=== PATIENT | male | born 1965 | race Caucasian/White ===

== ENCOUNTER 2017-10-07 12:41 | Day surgery (SDC) | payer OTHER ==
[~2017-10-07 12:41] MED LIST: Buffered Lidocaine 0.9% SYRIN* 5 ML/SYR SYRINGE INTRADERM ONE
[2017-10-07] MEDS ORDERED: Buffered Lidocaine 0.9% SYRIN* 5 ML/SYR SYRINGE ONE (12:58)
[2017-10-07] MEDS ORDERED: fentaNYL* 50 MCG/ML 2 ML VIAL (100 MCG VIAL) ONE (13:37)
[2017-10-07] MEDS ORDERED: Midazolam* 1 MG/ML 2 ML VIAL (2 MG) ONE (13:41)
[2017-10-07] MEDS ORDERED: Propofol* 10 MG/ML 20 ML BTL IV PUSH ONE (13:42)
[2017-10-07] MEDS ORDERED: Naloxone* 0.4 MG/ML 1 ML VIAL IV PRN (13:57)
[2017-10-07 14:39] VITALS: BP 116/63
--- NOTE | 2017-10-08 11:37 | PRO ---
CC: Liban Joiner MD GASTROENTEROLOGY PROCEDURE NOTE: DATE OF PROCEDURE: 10/07/17 REFERRING PHYSICIAN: Liban oJiner MD PROCEDURE: EGD with biopsies. PREOPERATIVE DIAGNOSES: Personal history of Mehta's esophagus in this 52-year- old male who has on going acid reflux symptoms. He is not on any medication in terms of antireflux medication. His most recent upper endoscopy was 2008. POSTOPERATIVE DIAGNOSES: 1. Evidence of Mehta's mucosa from 38 to 40 cm from the incisors. Four quadrant biopsies obtaine d at 38 and 40 cm. There was evidence of erosive esophagitis of the distal esophagus. 2. Diffuse gastritis without erosion or ulceration. Biopsies obtained with antrum for CLOtest, rule out H. pylori. 3. Normal duodenum. PROCEDURE MEDICATIONS: Per Anesthesia. INSTRUMENT: GF-190 Olympus high-definition gastroscope. DESCRIPTION OF PROCEDURE: Informed consent was obtained prior to performing this procedure. The ins trument was introduced into the mouth and passed through cervical esophagus under direct visualizatio n. The instrument was then advanced down the esophagus. In the distal esophagus, there was evidence of Mehta's mucosa from 38 to 40 cm from the incisors. Four quadrant biopsies were obtained at 38 and 40 cm. There was also evidence of erosive gastritis of the distal esophagus. The scope was then passed into the gastric cardia, fundus, body and antrum. There was evidence of mild diffuse gastrit is without erosion or ulceration. Biopsies were obtained for CLOtest for H. pylori testing. The sco pe was then passed through the pylorus and duodenal bulb and descending duodenum, both of which were normal. The instrument was withdrawn from the patient. The patient tolerated the procedure well and there were no complications. RECOMMENDATIONS: I will begin the patient on omeprazole 40 mg daily. I will notify him of pathology results in 1 week. He has been advised to undergo followup endoscopy in 3 years. [id number]/[facility] #: [id number]
== END 2017-10-07 14:59 | disposition home or self-care (01) ==
LOC: OR 12:41
PROVIDERS: ATTEND Internal Medicine
DX: K22.70 Barrett's esophagus without dysplasia (principal); K44.9 Diaphragmatic hernia without obstruction or gangrene; R10.10 Upper abdominal pain, unspecified; R13.10 Dysphagia, unspecified; F17.290 Nicotine dependence, other tobacco product, uncomplicated; K29.60 Other gastritis without bleeding; K21.0 Gastro-esophageal reflux disease with esophagitis; F41.9 Anxiety disorder, unspecified
CPT/HCPCS: 87077; 88305; J2250; J2704; J3010

== ENCOUNTER 2018-02-19 00:56 | Emergency (ER) | payer OTHER ==
[2018-02-19] MEDS ORDERED: Cephalexin CAP* 500 MG PO ONE (01:14)
[2018-02-19] MEDS ORDERED: Ibuprofen TAB* 400 MG PO ONE (01:15)
[2018-02-19] MEDS ORDERED: Tetan/Diph/Pertus SYR(Tdap)* 0.5 ML SYR(BOOSTRIX) use SYR IM ONE (01:15)
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
[2018-02-19 03:10] VITALS: BP 115/63
== END 2018-02-19 03:12 | disposition home or self-care (01) ==
LOC: ED 00:56
DX: S71.101A Unspecified open wound, right thigh, initial encounter (principal); W33.02XA Accidental discharge of hunting rifle, initial encounter; Y93.89 Activity, other specified; Y92.008 Other place in unspecified non-institutional (private) residence as the place of occurrence of the external cause; Z23 Encounter for immunization; J45.909 Unspecified asthma, uncomplicated; F17.290 Nicotine dependence, other tobacco product, uncomplicated
CPT/HCPCS: 71046; 90471; 90715; 99283; A9270-GY

== ENCOUNTER 2018-10-21 13:14 | Emergency (ER) | payer OTHER ==
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
--- NOTE | 2018-10-21 14:39 | ED ---
Shortness of Breath - HPI Summary HPI Summary: A 53 y/o male presents to [facility] with a chief complaint of SOB for a few weeks. He states that he has also had chest pain. He rates his pain as a 2/10 in severity. He says that his chest pain is right sided. He says that his chest pain started out as a sharp pain and is now a more dull pain. He denies abdominal pain. He reports that he was at Dr. Briones office where he had x-rays done. He said that the x-ray showed a big black spot on the right side and a smaller spot on the left side. He claims that Dr. Joiner wanted him to have a CT here, but the patient reports that his insurance wouldnt cover it. He claims that he tried to come in last week for the CT but got caught up helping his mother. He reports being a smoker. - History of Current Complaint Chief Complaint: EDShortnessOfBreath Time Seen by Provider: 10/21/18 14:31 Hx Obtained From: Patient Onset/Duration: Gradual Onset, Lasting Weeks, Still Present Timing: Constant Current Severity: Mild Dyspnea At: Rest Aggrevating Factors: Nothing Alleviating Factors: Nothing Associated Signs & Symptoms: Negative - fever, abdominal pain - Allergy/Home Medications Allergies/Adverse Reactions: Allergies Allergy/AdvReac Type Severity Reaction Status Date / Time gabapentin Allergy Agitation Verified 10/21/18 13:17 Home Medications: Home Medications Aspirin EC TAB* [Ecotrin EC Low Dose 81 MG*] 81 mg PO DAILY 10/21/18 [History Confirmed 10/21/18] Cyclobenzaprine TAB* [Flexeril 10 MG TAB*] 10 mg PO DAILY 10/21/18 [History Confirmed 10/21/18] Escitalopram * [Lexapro 20 mg (NF)] 20 mg PO DAILY 10/21/18 [History Confirmed 10/21/18] Fluticasone/Salmeterol [Fluticasone-Salmeterol 113-14] 1 puff INH BID 10/21/18 [ History Confirmed 10/21/18] Ibuprofen TAB* [Motrin TAB* 600 MG] 600 mg PO Q8H PRN 10/21/18 [History Confirmed 10/21/18] Omeprazole (Nf) [Prilosec (NF)] 40 mg PO DAILY 10/21/18 [History Confirmed 10/21] PMH/Surg Hx/FS Hx/Imm Hx Endocrine/Hematology History: Reports: Hx Anemia Denies: Hx Diabetes, Hx Thyroid Disease Cardiovascular History: Denies: Hx Hypertension, Hx Pacemaker/ICD, Other Cardiovascular Problems/ Disorders Respiratory History: Reports: Hx Asthma - on medication Denies: Hx Chronic Obstructive Pulmonary Disease (COPD), Other Respiratory Problems/Disorders GI History: Reports: Hx Gastroesophageal Reflux Disease, Other GI Disorders - pancreatitis, diverticulitis Denies: Hx Ulcer History: Denies: Other Problems/Disorders Musculoskeletal History: Reports: Hx Arthritis - "All over", knees, arms, neck, back Denies: Other Musculoskeletal History Sensory History: Denies: Hx Contacts or Glasses, 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 Opthamlomology History: Denies: Hx Contacts or Glasses Neurological History: Denies: Other Neuro Impairments/Disorders Psychiatric History: Reports: Hx Anxiety Denies: Hx Panic Disorder - Surgical History Surgery Procedure, Year, and Place: L knee ACL repair 1991, R knee ARTHROSCOPY, DEVIATED SEPTUM, Broken collarbone Hx Anesthesia Reactions: No Infectious Disease History: No Infectious Disease History: Reports: Hx Shingles - 2004 Denies: Hx Hepatitis, Hx Human Immunodeficiency Virus (HIV), Traveled Outside the [place] in Last 30 Days - Family History Known Family History: Negative: Diabetes - Social History Alcohol Use: None Substance Use Type: Reports: Marijuana Substance Use Comment - Amount & Last Used: 1-2 bowls per day Hx Tobacco Use: Yes Smoking Status (MU): Current Every Day Smoker Type: Cigars Amount Used/How Often: 10 cigars a day Have You Smoked in the Last Year: Yes Review of Systems Negative: Fever Positive: Chest Pain Positive: Shortness Of Breath Negative: Abdominal Pain All Other Systems Reviewed And Are Negative: Yes Physical Exam - Summary Physical Exam Summary: Appearance: The patient is well-nourished in no acute distress and in no acute pain. Skin: The skin is warm and dry and skin color reflects adequate perfusion. HEENT: The head is normocephalic and atraumatic. The pupils are equal and reactive. The conjunctivae are clear and without drainage. Nares are patent and without drainage. Mouth reveals moist mucous membranes and the throat is without erythema and exudate. The external ears are intact. The ear canals are patent and without drainage. The tympanic membranes are intact. Neck: The neck is supple with full range of motion and non-tender. There are no carotid bruits. There is no neck vein distension. Respiratory: Chest is non-tender. Lungs are clear to auscultation and breath sounds are symmetrical and equal. Cardiovascular: Heart is regular rate and rhythm. There is no murmur or rub auscultated. There is no peripheral edema and pulses are symmetrical and equal. Abdomen: The abdomen is soft and non-tender. There are normal bowel sounds heard in all four quadrants and there is no organomegaly palpated. Musculoskeletal: There is no back tenderness noted. Extremities are non-tender with full range of motion. There is good capillary refill. There is no peripheral edema or calf tenderness elicited. Neurological: Patient is alert and oriented to person, place and time. The patient has symmetrical motor strength in all four extremities. Cranial nerves are grossly intact. Deep tendon reflexes are symmetrical and equal in all four extremities. Psychiatric: The patient has an appropriate affect and does not exhibit any anxiety or depression. Triage Information Reviewed: Yes Vital Signs On Initial Exam: Initial Vitals Temp Pulse Resp BP Pulse Ox 97.1 F 98 18 153/90 98 10/21/18 13:17 10/21/18 13:17 10/21/18 13:17 10/21/18 13:17 10/21/18 13:17 Vital Signs Reviewed: Yes Diagnostics - Vital Signs Vital Signs Temp Pulse Resp BP Pulse Ox 10/21/18 13:17 97.1 F 98 18 153/90 98 - Laboratory Result Diagrams: 10/21/18 15:34 10/21/18 15:34 Lab Statement: Any lab studies that have been ordered have been reviewed, and results considered in the medical decision making process. - CT chest CT Interpretation Completed By: Radiologist Summary of CT Findings: Stigmata of emphysema and mild interstitial fibrosis most prominent at the upper lung. zones. Mild patchy groundglass opacity bilaterally with relative sparing of the lung bases. Small loculated RIGHT pleural effusion at the lateral mid to basilar RIGHT hemithorax. with the pleural fluid collection measuring up to 13 cm AP by 2.8 cm transverse by 13.6 cm. cephalocaudal. Mildly enlarged RIGHT infrahilar lymph node. Consider atypical infection/interstitial lung disease possibly inhalational given upper. lung zone predominance. Consider bronchoscopy and diagnostic RIGHT thoracentesis for. microbiology and pathologic assessment. ED physician has reviewed this imaging report. - EKG 13:28 Cardiac Rate: NL - 76 bpm EKG Rhythm: Sinus Rhythm Summary of EKG Findings: Normal sinus rhythm at 76 bpm, probably old infacrct. Course/Dx - Course Course Of Treatment: Mr. Ballard presented to the emergency department stating that he needed a CT scan of his chest. Apparently several weeks ago he had a chest x-ray which revealed an abnormality. He was unable to follow-up at that time and comes in today. He was nontoxic in appearance with stable vital signs. He is a smoker. There is no chest x-ray for him in our system therefore one was performed today which showed a loculated effusion on the right. Radiology recommended contrast CT scan. Contrast CT scan was obtained and again shows the effusion as well as significant emphysematous changes. I told him about the findings and recommended close follow-up with his PCP. He will likely need a diagnostic drainage of this effusion. I also recommended to him that he consult with his PCP about stopping smoking and he agreed to do that. - Diagnoses Provider Diagnoses: Pleural effusion Discharge - Sign-Out/Discharge Documenting (check all that apply): Patient Departure - DC Patient Received Moderate/Deep Sedation with Procedure: No - Discharge Plan Condition: Stable Disposition: HOME Patient Education Materials: Pleural Effusion (ED) Referrals: Liban Joiner MD [Primary Care Provider] - (2-3 days) Additional Instructions: Follow up with your PCP in 2-3 days. Return to the ED if you experience any new or worsening symptoms. - Billing Disposition and Condition Condition: STABLE Disposition: Home - Attestation Statements Document Initiated by Julio: Yes Documenting Scribe: Marcelo Ortega Provider For Whom Juilo is Documenting (Include Credential): Justin Robins MD Scribe Attestation: I, Marcelo Ortega, scribed for Justin Robins MD on 10/22/18 at 1113. Scribe Documentation Reviewed: Yes Provider Attestation: The documentation as recorded by the Marcelo harris accurately reflects the service I personally performed and the decisions made by me, Justin Robins MD Status of Scribe Document: Viewed
[2018-10-21 15:50] LABS: ABS Basophils 0 10^3/ul (0-0.2); ABS Eosinophils 0 10^3/ul (0-0.6); ABS Lymphocytes 1.5 10^3/ul (1.0-4.8); ABS Monocytes 0.6 10^3/ul (0-0.8); ABS Neutrophils 8.3 10^3/ul (1.5-7.7); ABS Nucleated RBC 0 10^3/ul; Eosinophil % 0.3 %; Hematocrit 39 % (36-46); Hemoglobin 13.2 g/dL (14.0-18.0); Lymphocyte % 14.7 %; Mean Corpuscular HGB Conc 34 g/dL (31-36); Mean Corpuscular Hemoglobin 29 pg (27-31); Mean Corpuscular Volume 86 fL (80-94); Mean Platelet Volume 8.3 fL (7.4-10.4); Nucleated Red Blood Cells % 0.1; Platelet Count 241 10^3/uL (150-450); Red Blood Count 4.55 10^6 /uL (4.18-5.48); Red Cell Distribution Width 15 % (10.5-15); White Blood Count 10.5 10^3/uL (3.5-10.8)
[2018-10-21 16:02] LABS: Albumin 3.9 g/dL (3.2-5.2); BUN/Creatinine Ratio 11.6 (8-20); C Reactive Protein 15.2 mg/L (<8.01); Calcium 9.3 mg/dL (8.6-10.3); EGFR African American 145.7 (>60); EGFR Non-African American 120.4 (>60); Globulin 4.1 g/dL (2-4); Total Bilirubin 0.4 mg/dL (0.2-1.0)
[2018-10-21] MEDS ORDERED: Iohexol 300* (CONTRAST) 10 ML SDV IV ONE (16:20)
[2018-10-21 17:06] VITALS: BP 139/84
== END 2018-10-21 17:05 | disposition home or self-care (01) ==
LOC: ED 13:14
DX: J90 Pleural effusion, not elsewhere classified (principal); R07.89 Other chest pain; J45.909 Unspecified asthma, uncomplicated; Z88.8 Allergy status to other drugs, medicaments and biological substances; F17.290 Nicotine dependence, other tobacco product, uncomplicated
CPT/HCPCS: 36415; 71260; 80053; 85025; 86140; 93005; 99282; Q9967